=== PATIENT | female | born 1940 | race Hispanic/Latino ===

== ENCOUNTER 2017-03-30 11:57 | Day surgery (SDC) | payer MEDICARE, OTHER ==
[2017-03-30] MEDS ORDERED: IOPIDINE OD ONE (12:11)
[2017-03-30] MEDS ORDERED: NEOFRIN OD ONE (12:11)
[2017-03-30] MEDS ORDERED: MYDRIACYL OD ONE (12:11)
[2017-03-30 12:42] VITALS: BP 110/68
[2017-03-30] MEDS ORDERED: NEOFRIN ONE (14:08)
[2017-03-30] MEDS ORDERED: MYDRIACYL ONE (14:08)
[2017-03-30] MEDS ORDERED: IOPIDINE ONE (14:09)
== END 2017-03-30 11:58 | disposition home or self-care (01) ==
LOC: OR 11:57
PROVIDERS: ATTEND Specialist
DX: H26.491 Other secondary cataract, right eye (principal); Z98.42 Cataract extraction status, left eye; Z98.41 Cataract extraction status, right eye; Z90.89 Acquired absence of other organs; Z90.710 Acquired absence of both cervix and uterus; Z98.890 Other specified postprocedural states; Z85.828 Personal history of other malignant neoplasm of skin